=== PATIENT | female | born 1980 ===

== ENCOUNTER 2021-05-05 00:44 | Emergency (ER) | payer SELFPAY ==
[~2021-05-05] VITALS: Ht 185.4 cm; Wt 81.6 kg
[2021-05-05] MEDS ORDERED: IV NORMAL SALINE 1000 ML BAG IV ONE (01:00)
--- NOTE | 2021-05-05 01:20 | NUR ---
Patient noted getting out of bed. explained risks / benefits of leaving patient still got out of bed and headed towards exit, attempted to reason with patient, patient ignored warning and still left. security notified but unable to get a hold of patient.
--- NOTE | 2021-05-05 01:22 | NUR ---
Patient eloped from facility. ER physician notified. Patient pulled IV line out. IV catheter intact
== END 2021-05-05 01:36 | disposition left against medical advice (07) ==
LOC: ER 00:47
DX: T40.601A Poisoning by unspecified narcotics, accidental (unintentional), initial encounter (principal); Y92.59 Other trade areas as the place of occurrence of the external cause; Z53.21 Procedure and treatment not carried out due to patient leaving prior to being seen by health care provider; J45.909 Unspecified asthma, uncomplicated; Z86.73 Personal history of transient ischemic attack (TIA), and cerebral infarction without residual deficits
CPT/HCPCS: 93005; A4663